=== PATIENT | female | born 1985 | race American Indian/Alaskan Native ===

== ENCOUNTER 2018-02-06 10:05 | Emergency (ER) | payer OTHER, BC ==
[2018-02-06 10:21] VITALS: BP 125/82; PULSE 76; RESP 18; TEMP 98.8; O2SAT 98
--- NOTE | 2018-02-06 11:51 | C.PDOC ---
History Of Present Illness 32 year old female presents to the ED complaining of left knee pain sustained at work. 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 Denies any weakness or numbness. Denies any other injuries. Chief Complaint (Nursing): Lower Extremity Problem/Injury History Per: Patient History/Exam Limitations: no limitations Onset/Duration Of Symptoms: Hrs Current Symptoms Are (Timing): Still Present Severity: Moderate - Knee Description Of Injury: Struck Against Object Past Medical History Reviewed: Historical Data, Nursing Documentation, Vital Signs Vital Signs: Last Vital Signs Temp 98.8 F 02/06/18 10:19 Pulse 76 02/06/18 10:19 Resp 18 02/06/18 10:19 BP 125/82 02/06/18 10:19 Pulse Ox 98 02/06/18 10:19 - Medical History PMH: No Chronic Diseases Surgical History: No Surg Hx Family History: States: No Known Family Hx - Social History Hx Alcohol Use: Yes Hx Substance Use: No - Immunization History Hx Tetanus Toxoid Vaccination: No Hx Influenza Vaccination: No Hx Pneumococcal Vaccination: No Review Of Systems Except As Marked, All Systems Reviewed And Found Negative. Musculoskeletal: Positive for: Other (left knee pain ) Neurological: Negative for: Weakness, Numbness Physical Exam - Physical Exam Appears: Non-toxic, No Acute Distress Skin: Warm, Dry, No Rash Head: Normacephalic Eye(s): bilateral: Normal Inspection Oral Mucosa: Moist Neck: Supple Chest: Symmetrical Cardiovascular: Rhythm Regular Respiratory: No Rales, No Rhonchi, No Wheezing Extremity: Tenderness (minimal tenderness to left knee), Capillary Refill (less than 2 sec to left knee), No Deformity, No Swelling Extremity: Bilateral: Normal Color And Temperature, Normal ROM Pulses: Left Dorsalis Pedis: Normal, Right Dorsalis Pedis: Normal Neurological/Psych: Oriented x3, Normal Speech Gait: Steady ED Course And Treatment O2 Sat by Pulse Oximetry: 98 (RA) Pulse Ox Interpretation: Normal - Other Rad XR left knee X-Ray: Viewed By Me, Read By Radiologist Interpretation: Accession No. : [id number]. Patient Name / ID : CONNOR PHILLIPS / [id number]. Exam Date : 02/06/2018 10:54:43 ( Approved ). Study Comment : Sex / Age : F / 32Y. Creator : Eduardo Browne MD. Dictator : Eduardo Browne MD. Rehabilitation Assistant : Scallop Raker : Eduardo Browne MD. Approver2 : Report Date : 02/06/2018 12:38:31. My Comment : * . Date of service: 02/06/2018. PROCEDURE: Left Knee Radiographs. HISTORY: Pain. COMPARISON: None. FINDINGS: BONES: Normal. No fracture. JOINTS: Normal. No osteoarthritis. JOINT EFFUSION: None. OTHER FINDINGS: None. IMPRESSION: Normal radiographs of the left knee. Progress Note: Knee immobilizer placed. Patient given crutches and training on how to use them by PT. Disposition - Disposition Referrals: Greyson Long MD [Staff Provider] - Disposition: HOME/ ROUTINE Disposition Time: 11:49 Condition: STABLE Additional Instructions: Follow up with PMD and Orthopedist within 1-2d ays. Return to ED if feel worse. Prescriptions: Ibuprofen [Motrin Tab] 600 mg PO Q8 #30 tab Instructions: Knee Sprain (DC) Forms: [facility] (Lao), Work Excuse - Clinical Impression Clinical Impression: Knee sprain - PA / PHOTOVOLTAIC INSTALLATION TECHNICIAN / Resident Statement MD/DO has reviewed & agrees with the documentation as recorded. - Scribe Statement The provider has reviewed the documentation as recorded by the Scribe Alyssia Adams All medical record entries made by the Scribe were at my direction and personally dictated by me. I have reviewed the chart and agree that the record accurately reflects my personal performance of the history, physical exam, medical decision making, and the department course for this patient. I have also personally directed, reviewed, and agree with the discharge instructions and disposition.
--- NOTE | 2018-02-06 12:42 | RAD ---
Date of service: 02/06/2018 PROCEDURE: Left Knee Radiographs. HISTORY: Pain. COMPARISON: None. FINDINGS: BONES: Normal. No fracture. JOINTS: Normal. No osteoarthritis. JOINT EFFUSION: None. OTHER FINDINGS: None. IMPRESSION: Normal radiographs of the left knee.
== END 2018-02-06 13:29 | disposition home or self-care (01) ==
LOC: C.ER 10:05
DX: S83.92XA Sprain of unspecified site of left knee, initial encounter (principal); V89.1XXA Person injured in unspecified nonmotor-vehicle accident, nontraffic, initial encounter
CPT/HCPCS: 73562; 97116; 97161; 99283; G8978; G8979; G8980